=== PATIENT | female | born 1985 | race Caucasian/White ===

== ENCOUNTER 2016-09-25 14:14 | Outpatient (CLI) | payer BC, OTHER | END 2016-09-25 23:59 | DX: N76.0 Acute vaginitis (principal) ==

== ENCOUNTER 2016-10-02 14:15 | Outpatient (CLI) | payer BC, OTHER | END 2016-10-02 23:59 | DX: N76.0 Acute vaginitis (principal) ==

== ENCOUNTER 2016-10-30 15:35 | Outpatient (CLI) | payer BC | END 2016-10-30 15:36 | disposition home or self-care (01) | DX: R10.2 Pelvic and perineal pain (principal); R10.9 Unspecified abdominal pain ==

== ENCOUNTER 2016-10-30 15:35 | Outpatient (CLI) | payer BC | END 2016-10-30 15:36 | disposition home or self-care (01) | DX: J31.0 Chronic rhinitis (principal); R10.84 Generalized abdominal pain ==

== ENCOUNTER 2016-10-31 13:29 | Outpatient (CLI) | payer BC | END 2016-10-31 13:30 | disposition home or self-care (01) | DX: R10.2 Pelvic and perineal pain (principal) ==

== ENCOUNTER 2020-12-09 08:00 | Outpatient (CLI) | payer BC | END 2020-12-09 23:59 | disposition home or self-care (01) | LOC: LAB.R 08:00 | PROVIDERS: ATTEND Family Medicine | DX: R39.9 Unspecified symptoms and signs involving the genitourinary system (principal) | CPT/HCPCS: 87086 ==

== ENCOUNTER 2021-05-24 08:00 | Outpatient (CLI) | payer BC ==
[2021-05-24 19:15] LABS: LEUKOCYTE ESTERASE, URINE LARGE (NEGATIVE); OCCULT BLOOD,URINE TRACE-INTA (NEGATIVE)
[2021-05-24 21:32] LABS: CLARITY,URINE CLEAR (CLEAR)
[2021-05-24 21:34] LABS: BACTERIA,URINE Few /HPF (None Seen); BILIRUBIN,URINE COLOR INTERFERENCE (NEGATIVE); RBC,URINE 0-5 /HPF (0-5); SQUAMOUS EPITHELIAL CELL,UR RARE Squamous (<= Few); WBC,URINE >25 /HPF (0-5)
== END 2021-05-24 23:59 | disposition home or self-care (01) ==
LOC: LAB.N 08:00
PROVIDERS: ATTEND Family Medicine
DX: R39.9 Unspecified symptoms and signs involving the genitourinary system (principal)
CPT/HCPCS: 81001; 87077; 87086; 87181

== ENCOUNTER 2021-06-17 08:00 | Outpatient (CLI) | payer BC | END 2021-06-17 23:59 | disposition home or self-care (01) | LOC: LAB.N 08:00 | PROVIDERS: ATTEND Nurse Practitioner | DX: R39.9 Unspecified symptoms and signs involving the genitourinary system (principal) | CPT/HCPCS: 87077; 87086; 87181 ==

== ENCOUNTER 2021-07-21 08:00 | Outpatient (CLI) | payer BC | END 2021-07-21 23:59 | disposition home or self-care (01) | LOC: LAB.N 08:00 | PROVIDERS: ATTEND Physician Assistant Medical | DX: N39.0 Urinary tract infection, site not specified (principal) | CPT/HCPCS: 87077; 87086; 87181 ==